=== PATIENT | female | born 1985 | race Caucasian/White ===

== ENCOUNTER 2017-03-27 16:56 | Emergency (ER) | payer MEDICAID ==
[~2017-03-27] VITALS: Ht 182.9 cm; Wt 196.1 kg
[~2017-03-27 16:56] MED LIST: DICY10CA88 PO; ESOM20CA PO; FLUO20CA39 PO; METO50TA16 PO; NOR5T PO; TRAZ-91 PO
[2017-03-27 17:03] VITALS: BP 171/118
[2017-03-27] MEDS ORDERED: AMOX-422 PO (17:41)
[2017-03-27] MEDS ORDERED: PRED20TA PO (17:41)
== END 2017-03-27 17:51 | disposition home or self-care (01) ==
LOC: ER 16:57
DX: J20.9 Acute bronchitis, unspecified (principal); J02.9 Acute pharyngitis, unspecified; J06.9 Acute upper respiratory infection, unspecified; J32.9 Chronic sinusitis, unspecified; I10 Essential (primary) hypertension; J45.909 Unspecified asthma, uncomplicated; K21.9 Gastro-esophageal reflux disease without esophagitis; F12.10 Cannabis abuse, uncomplicated; Z88.8 Allergy status to other drugs, medicaments and biological substances; Z79.899 Other long term (current) drug therapy; Z88.6 Allergy status to analgesic agent
CPT/HCPCS: 99283